=== PATIENT | male | born 2000 | race Caucasian/White ===

== ENCOUNTER 2024-10-19 16:45 | Emergency (ER) | payer BC, MEDICAID ==
[~2024-10-19] VITALS: Ht 182.9 cm; Wt 89.8 kg
[2024-10-19 17:09] VITALS: TEMP 96.5
--- NOTE | 2024-10-19 17:41 | RADIOLOGY REPORT ---
CHEST RADIOGRAPH Indication: CP Technique: Frontal and lateral view of the chest was obtained Comparison: None FINDINGS: Lines and Tubes: None Lungs: Clear Pleura: No effusion. No pneumothorax. Cardiomediastinal contours: Unremarkable Bones: Unremarkable IMPRESSION: No evidence of acute disease.
--- NOTE | 2024-10-19 17:58 | ELECTROCARDIOGRAPH REPORT ---
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
[2024-10-19 18:20] LABS: MEAN PLATELET VOLUME 7.1 FL (7.4-10.4); RED CELL DISTRIBUTION WIDTH 13.4 % (11.5-14.5)
[2024-10-19 18:25] LABS: CREATININE 1.20 MG/DL (0.60-1.10); TOTAL CARBON DIOXIDE 30.2 MMOL/L (24-32); eCRCL 103 ML/MIN; eGFR 74 ML/MIN
--- NOTE | 2024-10-19 19:04 | Physician Documentation ---
History of Present Illness ~ Chief Complaint: See Chief Complaint Stated Complaint: CP Time Seen by MD: 17:30 Mode of Arrival: POV HPI Patient is seen today with complaints of being alerted by his eye watched that he was in AFib. Patient also states he was feeling off and had some chest tightness yesterday and today. Patient was seen at urgent care and states his heart rate was elevated at 100 and 60 and had his blood pressure at 180/120. Patient currently denies any chest pain or shortness of breath or abdominal pain or nausea, vomiting, diarrhea. Patient has no other concern or complaint at this time. Medication Reconciliation Allergies: Coded Allergies: coconut (Verified Allergy, Unknown, 10/19/24) Review of Systems Constitutional: Denies: chills, fever, weakness Eyes: Denies: pain, blurred vision ENT: Denies: ear pain, nose pain, throat pain, mouth pain Respiratory: Denies: cough, shortness of breath Cardiovascular: Denies: chest pain, palpitations Gastrointestinal: Denies: abdominal pain, nausea, vomiting Genitourinary: Denies: burning, dysuria Male Genitalia: Denies: penile discharge, testicular pain Neurological: Denies: headache, dizziness Musculoskeletal: Denies: pain, swelling Integumentary: Denies: rash, lesions Allergic/Immunologic: Denies: hives, itching Hematologic/Lymphatic: Denies: no symptoms reported Psychiatric: Denies: depression, anxiety Physical Exam Vital Signs: Temperature: 96.5, Source: Temporal, Heart Rate: 81, Respiratory Rate: 18, BP: 136/87, Pulse Oximetry: 100, Weight: 89.800 Physical Exam General: Awake and Alert, no acute distress. HEENT: Conjunctiva pink, Sclera clear, Mucus Membranes moist. Neck: Supple without masses and tenderness. Resp: Unlabored. Lungs clear to auscultation bilaterally. Heart: Regular Rate and rhythm, normal S1 and S2 without murmur, rub or gallop. Abdomen: Soft and non tender no organomegaly Extremities: No cyanosis,clubbing or edema. Skin: Warm and Dry. Progress Results/Orders Results/Orders Orders - CARINE CHRISTIANSON PAC Urinalysis, Cult If Indicated (10/19/24 17:55) Completed Orders - CARINE CHRISTIANSON PAC Electrocardiogram (10/19/24 17:55) Cbc/Diff (10/19/24 17:55) MG (10/19/24 17:55) BMP (10/19/24 17:55) Hs Troponin I W Calculations (10/19/24 17:55) Vital Signs 10/19/24 10/19/24 17:09 17:37 Temp 96.5 Pulse 81 Resp 15 18 B/P (MAP) 136/87 Pulse Ox 100 Laboratory Tests Test 10/19/24 18:06 White Blood Count 7.5 Red Blood Count 4.97 Hemoglobin 15.2 Hematocrit 44.2 Mean Corpuscular Volume 89.0 Mean Corpuscular Hemoglobin 30.6 Mean Corpuscular Hemoglobin Concent 34.3 Red Cell Distribution Width 13.4 Platelet Count 269 Mean Platelet Volume 7.1 L Neutrophils (%) (Auto) 51.6 Lymphocytes (%) (Auto) 37.6 Monocytes (%) (Auto) 9.0 Eosinophils (%) (Auto) 1.1 Basophils (%) (Auto) 0.7 Neutrophils # (Auto) 3.9 Lymphocytes # (Auto) 2.8 Monocytes # (Auto) 0.7 Eosinophils # (Auto) 0.1 Basophils # (Auto) 0.0 CBC Comment Sodium Level 141 Potassium Level 3.7 Chloride Level 104 Carbon Dioxide Level 30.2 Anion Gap 7 L Blood Urea Nitrogen 9 Creatinine 1.20 H Estimated GFR/1.73 m2 74 BUN/Creatinine Ratio 7.5 L Glucose Level 97 Calcium Level 8.6 Magnesium Level 2.3 Troponin I High Sensitivity 6 Albumin 4.0 Chemistry Comments EKG/XRAY/CT/US/VASC/MRI EKG : Additional Comment EKG interpreted by myself today shows normal sinus rhythm with regular rate at 72 beats per minute, no ischemia, no ST segment elevation, no axis deviation. Medical Decision Making Findings Patient is seen today with complaints of being alerted by his eye watched that he was in AFib. Patient also states he was feeling off and had some chest tightness yesterday and today. Patient was seen at urgent care and states his heart rate was elevated at 100 and 60 and had his blood pressure at 180/120. Patient currently denies any chest pain or shortness of breath or abdominal pain or nausea, vomiting, diarrhea. Patient has no other concern or complaint at this time. Patient already has prescription of diltiazem and will continue to take as needed. Patient will follow up with primary care and get referral to Dr. Sheikh for Holter monitor testing and further eval and treatment. Return to ED with any worsening, concerning or changing symptoms. Departure Disposition: 01 HOME / SELF CARE / HOMELESS Impression: Primary Impression: Palpitations Condition: Improved Discharge Instructions: Palpitations, Fyrs-ta-Xwks Additional Instructions: Patient is seen today with complaints of being alerted by his eye watched that he was in AFib. Patient also states he was feeling off and had some chest tightness yesterday and today. Patient was seen at urgent care and states his heart rate was elevated at 100 and 60 and had his blood pressure at 180/120. Patient currently denies any chest pain or shortness of breath or abdominal pain or nausea, vomiting, diarrhea. Patient has no other concern or complaint at this time. Referrals: NO PRIMARY CARE PROVIDER (PCP) Signature Scribe Signature: No scribe Attestation: No scribe CARINE CHRISTIANSON PAC Oct 19, 2024 19:04
[2024-10-19 19:29] VITALS: BP 118/81; PULSE 72; RESP 18; O2SAT 99
== END 2024-10-19 19:30 | disposition home or self-care (01) ==
LOC: ER 16:46
DX: R00.2 Palpitations (principal); I48.91 Unspecified atrial fibrillation; Z79.899 Other long term (current) drug therapy
CPT/HCPCS: 36415; 71046; 80048; 83735; 84484; 85025; 93005; 99285

== ENCOUNTER 2024-11-08 12:05 | Emergency (ER) | payer BC ==
[~2024-11-08] VITALS: Ht 182.9 cm; Wt 86.4 kg
--- NOTE | 2024-11-08 13:01 | Physician Documentation ---
History of Present Illness ~ Chief Complaint: Irregular Heartbeat Stated Complaint: "AFIB" Time Seen by MD: 12:16 Source: patient Mode of Arrival: POV Exam Limitations: no limitations HPI Chief Complaint: Heart racing Caveat: None Independent Historians: None History of Present Illness: Patient is a 24-year-old man who has had atrial fibrillation, paroxysmal in cared for and treated by Dr. Chapman. Patient up at 7:00 a.m. noticing that his heart rate was rapid. He had associated shortness a breath and dizziness. No chest pain. No nausea or vomiting. No other associated symptoms. Patient took an extra dose of his sotalol (80 mg) and an extra aspirin. Review of systems: All systems were reviewed and are negative except for what is indicated in the history of present illness. Past Medical History: Paroxysmal atrial fibrillation Past Surgical History: None Social History: No tobacco use, no alcohol use, no drug Medications: Reviewed as documented Nursing Notes Allergies: Reviewed as documented in Nursing Notes Medication Reconciliation Allergies: Coded Allergies: coconut (Verified Allergy, Unknown, 11/08/24) Scheduled Aspirin (Aspir 81), 325 MG PO DAILY, (Reported) Emtricitabine/Tenofov Alafenam (Descovy 200-25 mg Tablet), 1 TAB PO DAILY, (Reported) Fluticasone/Salmeterol (Advair 100-50 Diskus), 1 PUFF INH BID, (Reported) Montelukast Sodium (Montelukast Sodium), 1 TAB PO HS, (Reported) Sotalol Hcl (Sotalol), 0.5 TAB PO DAILY, (Reported) Review of Systems All Other Systems at this time: Reviewed and Negative ROS Patient denies any other acute symptoms other than above. All other systems are negative Physical Exam Vital Signs: Temperature: 98.6, Source: Oral, Heart Rate: 112, Respiratory Rate: 12, BP: 121/85, Pulse Oximetry: 98, Weight: 86.360 Oxygen Flow Rate: 0 Pulse Oximetry Reflects: adequate oxygenation Physical Exam General Appearance: Mild distress HEENT: Normal OP, moist oral mucosa, PERRL, EOMI Neck: supple, normal ROM, trachea midline Pulmonary: No respiratory distress, CTA, BS equal Cardiac: Tachycardic, irregularly irregular, no murmur, rub or gallop, GI: nondistended, soft, nontender, normal bowel sounds, no guarding, no rebound Extremities: normal ROM, no swelling, non-tender Skin: intact, dry, warm, no rashes Neuro: AAOx3, speech is clear, no focal motor weakness Psych: normal affect, good eye contact, no apparent hallucination, normal speech Progress Results/Orders Results/Orders Orders - LUCIA CHAVEZ MD Chest,Single View (11/08/24 12:53) Saline Lock (11/08/24 12:53) Monitor (11/08/24 12:53) Oxygen (11/08/24 12:53) Hs Troponin I W Calculations (11/08/24 15:53) Electrocardiogram (11/08/24 15:19) Completed Orders - LUCIA CHAVEZ MD Cbc/Diff (11/08/24 12:53) MG (11/08/24 12:53) PBNP (11/08/24 12:53) Chest,Single View (11/08/24 12:53) BMP (11/08/24 12:53) Hs Troponin I W Calculations (11/08/24 12:53) Hs Troponin I W Calculations (11/08/24 14:53) Normal Saline 1000ml (0.9% Sodium Chlori (11/08/24 13:20) Diltiazem Iv (Cardizem Iv 5mg/Ml Inj.) (11/08/24 13:40) TSH (11/08/24 12:53) Medications Received in ER Medications (Trade) Dose Ordered Sig/Aracely Route PRN Reason Start Time Stop Time Status Last Admin Dose Admin Sodium Chloride 1,000 ml @ 1,000 mls/hr ONCE ONCE IV 11/08/24 13:20 11/08/24 14:19 DC 11/08/24 13:30 1,000 MLS/HR (Cardizem IV 5mg/ ml inj.) 15 mg ONCE ONCE IV 11/08/24 13:40 11/08/24 13:41 DC 11/08/24 13:47 15 MG Vital Signs 11/08/24 11/08/24 11/08/24 11/08/24 12:17 12:58 12:59 13:46 Temp 97.7 98.6 98.6 Pulse 132 112 129 Resp 20 12 16 14 B/P (MAP) 128/78 121/85 (97) 121/85 (97) Pulse Ox 98 98 98 O2 Flow Rate 0 0 11/08/24 11/08/24 11/08/24 13:47 13:52 14:43 Pulse 128 71 Resp 18 18 B/P (MAP) 121/85 109/75 (86) Pulse Ox 98 O2 Flow Rate 0 Laboratory Tests Test 11/08/24 12:53 11/08/24 15:01 White Blood Count 11.0 Red Blood Count 5.37 Hemoglobin 16.3 Hematocrit 48.1 Mean Corpuscular Volume 89.6 Mean Corpuscular Hemoglobin 30.4 Mean Corpuscular Hemoglobin Concent 33.9 Red Cell Distribution Width 13.5 Platelet Count 283 Mean Platelet Volume 7.7 Neutrophils (%) (Auto) 47.5 Lymphocytes (%) (Auto) 41.1 Monocytes (%) (Auto) 9.8 Eosinophils (%) (Auto) 1.2 Basophils (%) (Auto) 0.4 Neutrophils # (Auto) 5.2 Lymphocytes # (Auto) 4.5 Monocytes # (Auto) 1.1 H Eosinophils # (Auto) 0.1 Basophils # (Auto) 0.0 CBC Comment Sodium Level 139 Potassium Level 4.7 Chloride Level 105 Carbon Dioxide Level 29.6 Anion Gap 4 L Blood Urea Nitrogen 14 Creatinine 1.14 H Estimated GFR/1.73 m2 78 BUN/Creatinine Ratio 12.3 Glucose Level 98 Calcium Level 9.0 Magnesium Level 2.0 Troponin I High Sensitivity 8 45 Pro-B-Type Natriuretic Peptide 452 H Albumin 4.0 Thyroid Stimulating Hormone (TSH) 1.59 Chemistry Comments Troponin I High Sens Percent Delta 462 Troponin I Hi Sens Absolute Change 37 Medical Decision Making Findings Differential diagnosis includes but is not limited to: Atrial fibrillation with RVR, paroxysmal atrial fibrillation, atrial flutter EKG independent interpretation: Performed at 12:10 p.m.. Atrial fibrillation, heart rate 144, RVH with secondary repolarization abnormality REPEAT EKG INDEPENDENT INTERPRETATION: Performed at 3:40 p.m.. Atrial fibrillation, heart rate 88, right bundle-branch block, right axis deviation. Machine is reading ST-elevation suggesting acute pericarditis. Chest x-ray, single view, indication: Cardiac dysrhythmia, dizziness Independent interpretation: Lungs are clear, normal mediastinum, normal cardiac silhouette Laboratory data independent interpretation: CBC: Normal BNP: Unremarkable First troponin: 8 Second troponin: 45 Pro BNP 452 Emergency department course/medical decision-making: Presents with rapid atrial fibrillation. Patient meets criteria for synchronized cardioversion. However after discussing with his him analyst he recommends a dose of IV Cardizem 15 mg. 3:20 p.m.: Patient re-evaluated. Patient is in normal sinus rhythm now with a heart rate of 71. Repeat EKG will be performed. Patient is stable for discharge. Test results and treatment plan reviewed with the patient. Will increase sotalol for 80mg twice a day. Patient to follow up with Dr. Chapman this week in the office. Consultation/communications: Discussed with Dr. Hiren Marques recommended Cardizem 15 mg IV to try and convert. Departure Time of Disposition: 15:34 Disposition: 01 HOME / SELF CARE / HOMELESS Impression: Primary Impression: Atrial fibrillation Qualified Codes: I48.0 - Paroxysmal atrial fibrillation Condition: Improved Discharge Instructions: Atrial Fibrillation Additional Instructions: DOUBLE YOUR DOSE OF SOTALOL TO 80 MG TWICE A DAY. FOLLOW UP WITH DR. CHAPMAN THIS WEEK. RETURN TO THE ER IF YOUR SYMPTOMS RECUR. Referrals: NO PRIMARY CARE PROVIDER (PCP) Signature Scribe Signature: NO SCRIBE Attestation: NO SCRIBE LUCIA CHAVEZ MD Nov 08, 2024 13:01
[2024-11-08] MEDS ORDERED: EMTR1TAB18 PO (13:02)
[2024-11-08] MEDS ORDERED: SOTA80TA PO (13:02)
[2024-11-08] MEDS ORDERED: ADV50100 INH (13:02)
[2024-11-08] MEDS ORDERED: MONT-40 PO (13:02)
[2024-11-08] MEDS ORDERED: ASPI-611 PO (13:03)
[2024-11-08 13:07] LABS: MEAN PLATELET VOLUME 7.7 FL (7.4-10.4); RED CELL DISTRIBUTION WIDTH 13.5 % (11.5-14.5)
[2024-11-08 13:27] LABS: CREATININE 1.14 MG/DL (0.60-1.10); PRO BRAIN NATRIURETIC PEPTIDE 452 PG/ML (0-125); TOTAL CARBON DIOXIDE 29.6 MMOL/L (24-32); eCRCL 109 ML/MIN; eGFR 78 ML/MIN
[2024-11-08] MEDS: normal saline 1000ml 1,000 ML IV ONE (13:30)
--- NOTE | 2024-11-08 13:37 | RADIOLOGY REPORT ---
CHEST RADIOGRAPH Indication: CP Technique: Single frontal view of the chest was obtained Comparison: None FINDINGS: Lines and Tubes: None Lungs: No focal consolidation. Pleura: No effusion. No pneumothorax. Cardiomediastinal contours: Unremarkable Bones: No acute osseous abnormality. IMPRESSION: No acute cardiopulmonary disease.
--- NOTE | 2024-11-08 13:40 | ELECTROCARDIOGRAPH REPORT ---
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 Peña Peraza Measurements Intervals [place] Rate: 144 P: 0 [place]: 0 QRS: 192 QRSD: 97 T: 60 QT: 297 QTc: 460 Interpretive Statements Atrial fibrillation Probable RVH w/ secondary repol abnormality Electronically Signed On 11-08-2024 18:54:[address] Peña Peraza Please click the below link to view image of tracing.
[2024-11-08 13:46] VITALS: TEMP 98.6
[2024-11-08] MEDS: diltiazem 5mg/ml 5ml inj. IV ONE (13:47)
--- NOTE | 2024-11-08 15:42 | ELECTROCARDIOGRAPH REPORT ---
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 Peña Peraza Measurements Intervals [place] Rate: 88 P: 0 [place]: 0 QRS: 120 QRSD: 121 T: 57 QT: 356 QTc: 431 Interpretive Statements Atrial fibrillation Right bundle branch block ST elevation suggests acute pericarditis Electronically Signed On 11-08-2024 18:53:[address] Peña Peraza Please click the below link to view image of tracing.
[2024-11-08 17:41] VITALS: BP 120/66; PULSE 111; RESP 18; O2SAT 99
== END 2024-11-08 17:43 | disposition home or self-care (01) ==
LOC: ER 12:06
DX: I48.91 Unspecified atrial fibrillation (principal); Z79.82 Long term (current) use of aspirin; Z79.899 Other long term (current) drug therapy
CPT/HCPCS: 36415; 71045; 80048; 83735; 83880; 84443; 84484; 85025; 93005; 96361; 96374; 99285; J3490; J7030